=== PATIENT | male | born 1940 | race Caucasian/White ===

== ENCOUNTER 2022-11-06 08:00 | Outpatient (RCR) | payer MEDICARE, BC, SELFPAY | END 2022-11-07 14:31 | disposition home or self-care (01) | PROVIDERS: PCP Family Medicine; Visit Provider Student in an Organized Health Care Education/Training Program | DX: R26.89 Other abnormalities of gait and mobility (principal); Z51.89 Encounter for other specified aftercare | CPT/HCPCS: 97110; 97112; 97161; 97530; 97535 ==

== ENCOUNTER 2023-06-11 08:25 | Outpatient (CLI) | payer MEDICARE, BC, SELFPAY ==
--- OUTSIDE RECORDS SUMMARY | 2023-06-11 08:31 | XMS_ITS | Encounter Summary ---
Author Name Unknown Organization [facility] Address [address] [place] [address] Care Team Providers Care Organ Tuner Name Role Phone Elsewhere, Pcp Primary Care Provider Unavailabl e Encounter Details Date Type Department Care Team (Late st Contact Info) Description 12/24/2013 Historical Ophthalmology RST OPH Frandy Farley M.D. Social History Tobacco Use Types Packs/Day Years Used Date Smoking Tobacco: Never Assessed Sex and Gender Information Value Date Recorded Sex Assigned at Not on file Gender Identity Not on file Sexual Orientation Not on file documented as of this encounter Progress Notes * Frandy Farley M.D. - 12/24/2013 7:19 AM CDT Eye General CHIEF COMPLAINT Follow up on choroidal melanoma HISTORY OF PRESENT ILLNESS This is a 73 year old male here today for a follow up on choroidal melanoma. Patient states vision unchanged since last visit. Denies ocular pain, flashes of light, and diplopia. Floaters alone; lefteye; after injections; on and off. IMPRESSION / REPORT / PLAN 03/22/11 US left eye:tumor 1.4 x 14.4 x 10.8mm @ 12:30 PE, low to medium reflectivity, no extrascleral extension.Axial length 24.5mm right eye, 24.4mm left eye. LS 05/06/11 US left eye: tumor 1.4-1.5x 12 x 7.8mm @ 12:30 PE, low to medium reflectivity. No extrascleral extension. ZK 01 Nov 2011 US left eye: tumor 1.2 - 1.3mm @ 12 PE, no extrascleral extension. LS 26 Nov 2012 US left eye: tumor 1.1 - 1.3mm @ 12 PE, no extrascleral extension. LS 24 Dec 2013 US left eye: tumor 1.0 - 1.1mm @ 12 P, no extrascleral extension. LS 03/07 OCT RIGHT shows trace ERM; LEFT shows significant subretinal fluid extending into fovea (CMT =768), CESAR over lesion shows choroidal thickening with SRF; 03/07 AF RIGHT WNL; LEFT shows hyperfluorescence superior macula extending beyond arcade with hypofluorescence of lesion surrounded by stippled hyperfluorescence; 03/07 FA/ICG RIGHT WNL; LEFT shows filagree hyperfluorescence surrounding lesion from staining, and feeder vessels to lesion with late leakage 03/07 Color photos show: approximately 5mm superior to the fovea and 4mm superotemporal to the nervethere is a linear minimally elevated pigmented lesion with indistinct borders measuring 7.5mm x 12.5mm with surrounding stippled pigment and surrounding SRF extending diffusely into the macula almostto the inferior arcade 03/01/11 Outside imaging: Anterior, lateral, and posterior borders unchanged of lesion compared to 03/01/11 #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 TTT and 18mm plaque with 65Gy to 5mm inner 06/05 suspect diffuse choroidal melanoma because of the internal pigmentation (+) symptoms-distortions for 3mos w distortions, (-) thickness, (+) low internal reflectivity, (+) SRF, (-) proximity to nerve, (+) melanolipofuscin, (-) absence of drusen 03/25/11; approximately 6mm superior to the fovea and 6mm superotemporal to the nerve there is a linear mildely elevated variably pigmented chroidal mass with indistinct borders measuring 8.5mm x 13.5mm with the central aspect being pigmented and ovoid dome shaped measuring 10x6x1.5mm with overlyingdrusen, and the surrounding being flat and amelanotic with surrounding stippled melanolipofuscin and surrounding SRF extending diffusely into the macula almost to the inferior arcade 03/25/11: CT chest/abd/pelvis with 2 nonspecific right pulmonary nodules up to 3mm. No evidence of metastasis in abdomen or pelvis discussed polycarbonate lenses lina in light of his occupation 03/25/11: LFT, LDH, GGT wnl 05/05; vision has continued to get worse; photos tumor base is unchanged; discussed with patient since vision is getting worse so proceed with plaque and TTT; 18mm plaque with 65Gy to 5mm inner and TTT left eye May 26 and removal May 30 no biopsy/ 11/05; tumor thickness is less and good laser borders;dense laser around long tumor; tumor itself isnecrosing thickness has decreased ; lfts wnl; ct chest and abdomen no evidence of mets; pulmonary nodule is unchanged; has renal stones present; rtc 8mos with ct chest and abdomen, lfts, photos and US and oct 12/06; oct shows opacification of the retinal layers in the areas of the cw spots and no Cystoid macular edema; lfts wnl; ct chest unchanged nodules, ct abdomen shows lesion in the KIDNEY is maybe slightly changed; will get renal US; 12/07; oct shows interval retinal atrophy and, opacification of the retinal layers in the areas of the cw spots, no cystoid macular edema; Has been receiving Avastin at [facility] (x5), last one 6 weeks ago. 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 Farley. Pt should get CT chest/abdomen at home in six months. This was added to the letter. (blr) 11/2013 Plan: Refraction at home and if it helps continue Avastin injections LE at [facility]. 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 #6 PVD both #7 history of kidney stones #8 radiation retinopathy nonproliferative left eye CDM Reports - EYEGEN Id: [id number] Status: Fnl documented in this encounter Plan of Treatment Not on file documented as of this encounter Visit Diagnoses Not on filedocumented in this encounter Additional Health Concerns Infection Onset Date Last Indicated Resolved Time COVID19 Pending 12/02/2020 12/02/2020 12/02/2020 1 1:00 PM CDT documented as of this encounter Care Teams Organ Tuner Relationship Specialty Start Date End Date Elsewhere, Pcp PCP - General Internal Medicine 06/10/22 documented as of this encounter
--- OUTSIDE RECORDS SUMMARY | 2023-06-11 08:31 | XMS_ITS | Referral Summary ---
Author Name Unknown Organization [facility] Address [address] [place] [address] Care Team Providers Care Castables Worker Name Role Phone Elsewhere, Pcp Primary Care Provider Unavailabl e Source Comments Patient records contain information from all sites at [facility]. For routine questions regarding patient records, call [phone] during business hours, M-F 8:00 AM - 5:00 PM Central Time. Record requests for emergency care only can be directed to [phone] at any time.[facility] Allergies No known active allergies Medications Medication Sig Dispensed Refills Start Date End Date Status aspirin 81 mg chewable tablet Chew 81 mg daily. 12/26/2017 Ac tive cholecalciferol (VITAMIN D3) 25 mcg (1,000 Unit) capsule Take 1 capsule by mouth daily. 07/17/2015 Active multivitamin tablet Take 1 tablet by mouth every evening. 05/06/2011 Active nitroglycerin (NITROSTAT) 0.[address] 0.4 mg under the tongue. 05/02/2020 Active rosuvastatin (CRESTOR) 40 mg tablet Take 1 tablet by mouth at bedtime. 06/13/2020 Active vitamin E 400 unit capsule Take 1 capsule by mouth every evening. 05/06/2011 Active carvediloL (COREG) 12.5 mg tablet Take 0.5 tablets (6.25 mg total) by mouth 2 (two) times a day. 01/06/2023 Active lisinopriL (PRINIVIL,ZESTRIL) 10 mg tablet Take 0.5 tablets (5 mg total) by mouth daily. 01/06/2023 Active acetaminophen (TYLENOL) 500 mg tablet Take 2 tablets (1,000 mg total) by mouth every 6 (six) hours as needed for mild pain or score 1-3 of 10 or moderate pain or score 4-6 of 10. 01/06/2023 Active simethicone (MYLICON) 80 mg chewable tablet Chew 1 tablet (80 mg total) 4 (four) times a day. 01/06/2023 Active Active Problems Problem Noted Date Diagnosed Date Malignant Neoplasm Of Kidney Pelvis Right 2022 Overview: Oncologic history summary: 1) 03/2015: Right nephrectomy, grade 3/4 papillary RCC 2) 12/30/2022: Left lower lobe lung nodule FNA showed metastatic papillary RCC. 12/31/2022: Small bowel resection of necrotic bowel (45cm), no masses identified. Genetics: not indicated Medical history is otherwise notable for CKD, CAD, retinal vein occlusion, choroidal melanoma, and recent small bowel necrosis s/p resection. Last Assessment & Plan: We discussed the diagnosis at length as well as expected outcomes, treatment options, risks, benefits, side-effects, warning signs for immediate evaluation, and alternatives. We reviewed available imaging and laboratory results pertinent to the diagnosis and plan. Patient has a good understanding as well as capacity and agrees with treatment plan. 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 It is not present in any additional sites and has not been growing on 6-month interval CT scans, suggesting that systemic therapy is not indicated at this time. Mr. Smipson also has considerable competing morbidities that make systemic therapy even less compelling as an option. We discussed that I would not offer systemic therapy at this time. I would recommend continued [id number] imaging with his primary care physician, who is Dr. Ezequiel Sanchez at [facility]. Should there be significant growth over time, I would be happy to revisit with Mr. Simpson. It was a pleasure to meet Mr. Simpson today. He does not require additional follow- up with me in Medical Oncology at [facility] at this time. If there are additional complications or concerns in the future, I would be happy to see back in clinic. Our follow-up plans are: 1) Continue [id number] imaging for known metastatic papillary renal cell carcinoma 2) Return to clinic in future if needed Hyperlipidemia Mixed 01/01/2023 Complete Intestinal Obstruction Unspecified As T o Cause 12/31/2022 Cancer Renal Cell Carcinoma Personal History 08/2020 Nodules Pulmonary Multiple 11/30/2020 Edema Macular Cystoid Left 10/13/2019 Retinopathy Radiation Induced 10/13/2019 Nevus Choroid Right 10/13/2019 Chronic Kidney Disease (CKD), Stage 3 Unspecifie d 01/01/2018 Cardiac Disease 01/01/2018 Atherosclerotic Heart Diseas e Of [place] Coronary Artery Without Angina Pectoris 01/01/2018 Melanoma Choroid Left 04/02/2017 Resolved Problems Problem Noted Date Diagnosed Date Resolved Date Melanoma Choroid 06/27/2011 10/13/2019 Immunizations Name Administration Dates Next Due Influenza high dose QV(65 years or older) (PF) 1 03/08/2022 Social History Tobacco Use Types Packs/Day Years Used Date Smoking Tobacco: Never Smokeless Tobacco: Never Tobacco Cessation:Counseling Given: Not Answered Alcohol Use Standard Drinks/Week Comments Yes 0 (1 standard drink = 0.6 oz pur e alcohol) seldom Nutrition Answer Date Recorded Nutrition: EVOO Fat Source Unknown 04/28 Nutrition: Servings of Fruits/Vegetables per Day Not on file 04/28/2020 Dental Answer Date Recorded Dental: Regular Dentist Unknown 04/29/19 Sex and Gender Information Value Date Recorded Sex Assigned at Not on file Gender Identity Not on file Sexual Orientation Not on file Last Filed Vital Signs Vital Sign Reading Time Taken Comments Blood Pressure 105/69 01/22/2023 1:29 PM HUMAN RESOURCE STATISTICIAN Pulse 71 01/22/2023 1:29 PM HUMAN RESOURCE STATISTICIAN Temperature 36.7 ??C (98.1 ??F) 01/22/2023 1:29 PM CS T Respiratory Rate 18 01/06/2023 11:5 0 AM HUMAN RESOURCE STATISTICIAN Oxygen Saturation 100% 01/22/2023 1:29 PM HUMAN RESOURCE STATISTICIAN Inhaled Oxygen Concentration - - Weight 99.7 kg (219 lb 12.8 oz) 01/22/2023 1:29 PM HUMAN RESOURCE STATISTICIAN Height 174.3 cm (5' 8.62) 01/22/2023 1:29 PM CS T Body Mass Index 32.82 01/22/2023 1:29 PM HUMAN RESOURCE STATISTICIAN Plan of Treatment Not on file Medical Devices Implanted Type Area Liquid Fertilizer Servicer Device Identifier Shelf Expiration Date Model / Serial / Lot Vascular Stent-05/15/2019 Implanted:Qty: 1 on 05/15/2019 Vascular Stent Left: Heart Medtronic / [id number] / [id number] Description:LAD. Resolute On yx Coronary Stent Zotarolimus-Eluting MRI conditional up to 3T Maximum spatial gradient magnetic field of 3000 gauss/cm or less Maximum MR system reported, whole body averaged specific absorption rate (ANGELINE) of 2.0 W/Kg (Normal operating mode) [facility] 10/12/2019 R.T.(R)(MR) Vascular Stent-07/22/2019 Implanted:Qty: 1 on 07/22/2019 Vascular Stent Left: Heart Medtronic / [id number] / [id number] Description:LAD. Resolute On yx Coronary Stent Zotarolimus-Eluting MRI conditional up to 3T Maximum spatial gradient magnetic field of 3000 gauss/cm or less Maximum MR system reported, whole body averaged specific absorption rate (ANGELINE) of 2.0 W/Kg (Normal operating mode) [facility] 10/12/2019 R.T.(R)(MR) Procedures Procedure Name Priority Date/Time Associated Diagnosis Comments COMPREHENSIVE METABOLIC PANEL, S/P Routine 01/21/2023 12:51 PM HUMAN RESOURCE STATISTICIAN Cancer Renal Cell Carcinoma Personal History Secondary Malignant Neoplasm Lung Left (HCC) from Last 3 Months or Most Recently Relevant to Health Maintenance Results * (ABNORMAL) Comprehensive Metabolic Panel (01/21/2023 12:51 PM HUMAN RESOURCE STATISTICIAN) Pathologist [facility] Potassium, S 4.9 3.6 - 5.2 mmol/L 01/21/2023 2:27 PM HUMAN RESOURCE STATISTICIAN DTL Sodium, S 140 135 - 145 mmol/L 01/21/2023 2:27 PM HUMAN RESOURCE STATISTICIAN DTL Chloride, S 103 98 - 107 mmol/L 01/21/2023 2:27 PM HUMAN RESOURCE STATISTICIAN DTL Bicarbonate, S 26 22 - 29 mmol/L 01/21/2023 2:27 PM HUMAN RESOURCE STATISTICIAN DTL Anion Gap 11 7 - 15 01/21/2023 2:27 PM HUMAN RESOURCE STATISTICIAN DTL BUN (Blood Urea Nitrogen), S 16 8 - 24 mg/dL 01/21/2023 2:27 PM HUMAN RESOURCE STATISTICIAN DTL Creatinine 1.32 0.74 - 1.35 mg/dL 01/21/2023 2:27 PM HUMAN RESOURCE STATISTICIAN DTL Estimated GFR (eGFR) 55(L) >=60 mL/min/BS A 01/21/2023 2:27 PM HUMAN RESOURCE STATISTICIAN DTL Comment: Estimated GFR calculated using the 2020 CKD_EPI creatinine equation. Calcium, Total, S 9.5 8.8 - 10.2 mg/dL 01/21/2023 2:27 PM HUMAN RESOURCE STATISTICIAN DTL Glucose, S 110 70 - 140 mg/dL 01/21/2023 2:27 PM HUMAN RESOURCE STATISTICIAN DTL Protein, Total, S 7.3 6.3 - 7.9 g/dL 01/21/2023 2:27 PM HUMAN RESOURCE STATISTICIAN DTL Albumin, S 4.2 3.5 - 5.0 g/dL 01/21/2023 2:27 PM HUMAN RESOURCE STATISTICIAN DTL Aspartate Aminotransferase (AST), S 34 8 - 48 U/L 01/21/2023 2:27 PM HUMAN RESOURCE STATISTICIAN DTL Alkaline Phosphatase, S 96 40 - 129 U/L 01/21/2023 2:27 PM HUMAN RESOURCE STATISTICIAN DTL Alanine Aminotransferase (ALT), S 48 7 - 55 U/L 01/21/2023 2:27 PM HUMAN RESOURCE STATISTICIAN DTL Bilirubin, Total, S 0.8 0.0 - 1.2 mg/dL 01/21/2023 2:27 PM HUMAN RESOURCE STATISTICIAN DTL Blood (Blood, Venous) 01/21/2023 12:51 PM HUMAN RESOURCE STATISTICIAN 01/21/2023 1:59 PM HUMAN RESOURCE STATISTICIAN Jomar Alexander APRN, C.N.P., D.N.P. L AB BLOOD ADD-ON [facility] [address] [place] [address], [facility] [address] [place] [address] from Last 3 Months or Most Recently Relevant to Health Maintenance Advance Directives For more information, please contact: [phone] * Full Code (Latest Code Status on File) Date Activated Date Inactivated Comments 12/31/2022 4:08 AM 01/06/2023 4:44 PM Question Answer Comments Full Code: Discussed Care Teams Castables Worker Relationship Specialty Start Date End Date Elsewhere, Pcp PCP - General Internal Medicine 06/10/22
--- OUTSIDE RECORDS SUMMARY | 2023-06-11 08:31 | XMS_ITS | Encounter Summary ---
Author Name Unknown Organization [facility] Address [address] [place] [address] Care Team Providers Care Binder Roller Name Role Phone Elsewhere, Pcp Primary Care Provider Unavailabl e Encounter Details Date Type Department Care Team (Late st Contact Info) Description 01/05/2015 Historical Ophthalmology RST OPH Frandy Farley M.D. Social History Tobacco Use Types Packs/Day Years Used Date Smoking Tobacco: Never Assessed Sex and Gender Information Value Date Recorded Sex Assigned at Not on file Gender Identity Not on file Sexual Orientation Not on file documented as of this encounter Progress Notes * Frandy Farley M.D. - 01/05/2015 11:07 AM CST Eye General CHIEF COMPLAINT Follow up diffuse choroidal melanoma HISTORY OF PRESENT ILLNESS This is a 74 year old male here today for follow up diffuse choroidal melanoma. Patient reports vision is stable since last visit. Patient denies any flashes of light and floaters. Patient denies anyocular pain. Patient has been receiving injections via Dr. Jefferson Cisneros at [facility]. MJ: pt does not think the injections help improve his vision much. Per pt, Dr. Allen (his local adaptive physical education specialist) gave him a new MRx for the right eye since he had broken the lens. However, he did notget a new prescription for the left eye. IMPRESSION / REPORT / PLAN 03/22/11 left eye:tumor 1.4 x 14.4 x 10.8mm [...] @ 12 P, no extrascleral extension. LS 05 Jan 2015 US Left Eye: tumor 1.0 - 1.1mm @ 12 P, no extrascleral extension. ZK 03/07 OCT RIGHT shows trace ERM; LEFT [...] compared to 03/01/11 #1 diffuse choroidal melanoma ([id number]) left eye sp TTT and 18mm plaque [...] macular edema; Has been receiving Avastin at [facility] (x5), last one 6 weeks ago. LFTs wnl, CT chest unchanged nodules,ct abdomen shows previously visualized lesion in the KIDNEY ;repeat kidney US at home ([facility]) and ROJELIO shows improvementPAM: RE 20/25+ -0.75; LE 20/100 -2.00 so consider change in refraction and if the change does not help vision then stop the avastin, if it does, continue injection; 01/08 CT chest/abd and LFTs done at [facility] - pt does not have with him-pt states that has not had these done at home and has not fued w Dr Sanchez. OCT RIGHT: ERM, no fluid LEFT: mild ERM, no fluid; CT chest abd and pelvis done 01/23/15; shows rt renal lesion not seen on ct from 08/2013; lfts wnl; letter sent to Dr Sanhcez #2 Pseudophakia left #3 Cataract right #4 [...] it helps continue Avastin injections LE at [facility]. 12/2014 Plan: no cystoid edema. Last injection of avastin left eye 2 months ago. fu w Dr Allen in 2mos and if vitreous hemorrhage then treat otherwise follow ; see Dr Sanchez for systemic fu with CT chest, abd/pelvis and LFTs, rtc 12mos with photos; US; OCT. 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 #6 PVD both #7 history of kidney stones #8 radiation retinopathy nonproliferative left eye CDM Reports - EYEGEN Id: [id number] Status: Fnl documented in this encounter Plan of Treatment Not on file documented as of this encounter Visit Diagnoses Not on filedocumented in this encounter Additional Health Concerns Infection Onset Date Last Indicated Resolved Time COVID19 Pending 12/02/2020 12/02/2020 12/02/2020 1 1:00 PM CDT documented as of this encounter Care Teams Binder Roller Relationship Specialty Start Date End Date Elsewhere, Pcp PCP - General Internal Medicine 06/10/22 documented as of this encounter
--- OUTSIDE RECORDS SUMMARY | 2023-06-11 08:31 | XMS_ITS | Encounter Summary ---
Author Name Unknown Organization [facility] Address [address] [place] [address] Care Team Providers Care Mule Spinner Name Role Phone Elsewhere, Pcp Primary Care Provider Unavailabl e Encounter Details Date Type Department Care Team (Late st Contact Info) Description 11/26/2012 Historical Ophthalmology RST OPH Frandy Farley M.D. Social History Tobacco Use Types Packs/Day Years Used Date Smoking Tobacco: Never Assessed Sex and Gender Information Value Date Recorded Sex Assigned at Not on file Gender Identity Not on file Sexual Orientation Not on file documented as of this encounter Progress Notes * Frandy Farley M.D. - 11/26/2012 7:32 AM CDT Eye General CHIEF COMPLAINT Follow up on choroidal melanoma HISTORY OF PRESENT ILLNESS 72 year old male here for follow up on choroidal melanoma. No change in floaters;left eye>right eye;rarely;several months. Patient states vision has been stable. Patient denies flashes of light ocular pain. IMPRESSION / REPORT / PLAN 03/22/11 US [...] @ 12 PE, no extrascleral extension. LS 03/07 OCT RIGHT [...] compared to 03/01/11 #1 diffuse choroidal melanoma ([id number]) left eye sp TTT and 18mm plaque [...] maybe slightly changed; will get renal US; #2 Pseudophakia left #3 Cataract right #4 [...] This was added to the letter. (blr) DIAGNOSIS #1 diffuse choroidal melanoma ([id number]) left eye sp TTT and 18mm plaque with 65Gy to 5mm inner 06/05 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 #6 PVD both #7 history of kidney stones #8 radiation retinopathy nonproliferative left eye CDM Reports - EYEGEN Id: [id number] Status: Fnl documented in this encounter Plan of Treatment Not on file documented as of this encounter Visit Diagnoses Not on filedocumented in this encounter Additional Health Concerns Infection Onset Date Last Indicated Resolved Time COVID19 Pending 12/02/2020 12/02/2020 12/02/2020 1 1:00 PM CDT documented as of this encounter Care Teams Mule Spinner Relationship Specialty Start Date End Date Elsewhere, Pcp PCP - General Internal Medicine 06/10/22 documented as of this encounter
--- OUTSIDE RECORDS SUMMARY | 2023-06-11 08:31 | XMS_ITS | Encounter Summary ---
Author Name Unknown Organization [facility] Address [address] [place] [address] Care Team Providers Care Data Entry Analyst Name Role Phone Elsewhere, Pcp Primary Care Provider Unavailabl e Encounter Details Date Type Department Care Team (Late st Contact Info) Description 11/01/2011 Historical Ophthalmology RST OPH Frandy Farley M.D. Social History Tobacco Use Types Packs/Day Years Used Date Smoking Tobacco: Never Assessed Sex and Gender Information Value Date Recorded Sex Assigned at Not on file Gender Identity Not on file Sexual Orientation Not on file documented as of this encounter Progress Notes * Frandy Farley M.D. - 11/01/2011 1:21 PM CDT Eye General CHIEF COMPLAINT Follow up for choroidal melanoma HISTORY OF PRESENT ILLNESS Floaters;LE>RE;rarely;several months;improved since first noted. Patient states vision has been stable. Patient denies ocular pain. Denies flashes of light. 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
--- OUTSIDE RECORDS SUMMARY | 2023-06-11 08:31 | XMS_ITS | Encounter Summary ---
Author Name Unknown Organization [facility] Address [address] [place] [address] Care Team Providers Care Traffic Officer Name Role Phone Elsewhere, Pcp Primary Care Provider Unavailabl e Encounter Details Date Type Department Care Team (Late st Contact Info) Description 04/09/2017 Historical Ophthalmology RST OPH Jo Ann Figueroa M.D. Social History Tobacco Use Types Packs/Day Years Used Date Smoking Tobacco: Never Assessed Sex and Gender Information Value Date Recorded Sex Assigned at Not on file Gender Identity Not on file Sexual Orientation Not on file documented as of this encounter Progress Notes * Jo Ann Figueroa M.D. - 04/09/2017 8:27 AM CST Eye General CHIEF COMPLAINT blurred vision HISTORY OF PRESENT ILLNESS Blurred vision;left eye; x many months; occasionally; symptoms are stable. MD: Primary eye provider is Dr. Hector Allen (saw him 2 weeks ago). Kidney surgeon is Dr. Shiraz Amaro (CXR, CT of abd/pelv, and LFTS with him in Feb). Primary care provider is Dr. Ezequiel Henley. Also sees Dr. Paulino at [facility] (saw him about 3 weeks ago and gets a shot about every 6 weeks with him. (Avastin left eye 03/07/2017) Records received from Dr. Allen, Dr. Amaro, and Dr. Paulino reviewed and scanned into record. IMPRESSION / REPORT / PLAN OCULAR TESTIN03/22/11 left eye:tumor 1.4 x 14.4 x 10.8mm @ 12:30 PE, low to medium reflectivity, no extrascleral extension.Axial length 24.5mm right eye, 24.4mm left eye. LS 3/12/12 US left eye: tumor 1.4-1.5x 12 x [...] @ 12 P, no extrascleral extension. ZK 28 Mar 2016 US Left Eye: tumor 1.1 - 1.2 mm @ 12 P, no extrascleral extension. LS 02 Apr 2017 US Left Eye: tumor 1.0 mm @ 12 P, no extrascleral extension SH 02 Apr 2017 OCT: right eye, extrafoveal ERM, no IRF/SRF; left eye atrophy and scar, decreased fluidcompared with 2017. 02 Apr 2017 Color photos: left eye scar with stable margins, decreased heme, residual exudate, improved compared with 2017 SYSTEMIC TESTIN03/14/2017 Liver enzymes (outside report) within normal limits 03/14/2017 Chest xray (outside report): stable chest. 03/14/2018 CT abd/pelvis (outside report): right nephrectomy. No evidence of metastatic disease in the abdomen or pelvis. 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 LFTs wnl, CT chest unchanged nodules,ct abdomen shows previously visualized lesion in the KIDNEY ;repeat kidney US at home ([facility]) and ROJELIO shows improvementPAM: RE 20/25+ -0.75; LE 20/100 -2.00 so consider change in refraction and if the change does not help vision then stop the avastin, if it does, continue injection; 01/08 CT chest/abd and LFTs done at [facility] - pt does not have with him-pt states that has not had these done at home and has not fued w Dr Sanchez. OCT RIGHT: ERM, no fluid LEFT: mild ERM, no fluid; CT chest abd and pelvis done 01/23/15; shows rt renal lesion not seen on ct from 08/2013; lfts wnl; letter sent to Dr Sanchez 04/12 CT chest/abd and LFTs done at [facility] 12/09 wnl. OCT RIGHT: ERM, no fluid LEFT: mild ERM, exudates with thickening along suptemp arcade (increased from last). 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 CT abdomen 12/09 without mets. Since he has had two cancers discussed the risks and benefits of gene testing for bap1, he wishes to have it done BAP1 NEGATIVE SYSTEMICALLY 04/09/2017: stable exam and testing as above. Copy of [facility] report printed and handed to patient per his request. 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 #6 PVD both #7 history of kidney stones 11/06; still present by CT scan 04/09/2017 s/p right nephrectomy #8 radiation retinopathy nonproliferative left eye #9 renal cell carcinoma right kidney, now s/p right nephrectomy. 12/06; no Cystoid macular edema but will [...] LFTs, rtc 12mos with photos; US; OCT. 03/2016 Plan: increased radiation retinopathy changes with macular edema but no maximo NV on exam andno VH. Poor visual prognosisn but could help peripheral vision consider avastin q3mos. F/u with Dr. Allen in 3 months. If VH then treat otherwise follow. See Dr. Sanchez for systemic fu with CT chest, abd/pelvis and LFTs, rtc 12 months with photos; US; OCT, (CT chest and abdomen with lfts done prior to return in one year at home) genedx discussed 04/09/2017 PLAN: 1) Keep follow up with Jefferson Aguilar as scheduled. 2) Keep follow up with Dr. Allen every year or sooner as needed 3) Keep follow up with Dr. Sanchez and Dr. Amaro with repeat systemic imaging (repeat chest xray or CT of chest, as well as repeat CT of abdomen/pelvis and repeat liverfunction tests) all due 02/2018 with a copy of results to be sent here 4) Follow up here 03/2018 witheye testing: OPTOS photos both eyes; OCT Spectralis both eyes, US left eye, and exam, [facility]. Mail a copy of CDM to patient and Dr. Paulino. Discussed all of the above with patient who states that he/she understands and agrees with plan. 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 CDM Reports - EYEFarmDrop Id: [id number] Status: Fnl documented in this encounter Plan of Treatment Not on file documented as of this encounter Visit Diagnoses Not on filedocumented in this encounter Additional Health Concerns Infection Onset Date Last Indicated Resolved Time COVID19 Pending 12/02/2020 12/02/2020 12/02/2020 1 1:00 PM CDT documented as of this encounter Care Teams Traffic Officer Relationship Specialty Start Date End Date Elsewhere, Pcp PCP - General Internal Medicine 06/10/22 documented as of this encounter
--- OUTSIDE RECORDS SUMMARY | 2023-06-11 08:31 | XMS_ITS | Clinical Summary ---
Author Name Unknown Organization [facility] Address [address] [place] [address] Care Team Providers Care Senior Director Finance Name Role Phone Elsewhere, Pcp Primary Care Provider Unavailabl e Source Comments Patient records contain information from all sites at [facility]. For routine questions regarding patient records, call [phone] during business hours, M-F 8:00 AM - 5:00 PM Central Time. Record requests for emergency care only can be directed to [phone] at any time.[facility] Allergies No known active allergies Medications Medication [...] is not indicated at this time. Mr. Simpson also has considerable competing morbidities that make systemic therapy even less compelling as an option. We discussed that I would not offer systemic therapy at this time. I would recommend continued [id number] imaging with his primary care physician, who is Dr. Ezequiel Sanchez at [facility]. Should there be significant growth over time, I would be happy to revisit with Mr. Simpson. It was a pleasure to meet Mr. Simpson today. He does not require additional follow- up with me in Medical Oncology at [facility] at this time. If there are additional complications or concerns in the future, I would be happy to see back in clinic. Our follow-up plans are: 1) Continue u8idajy imaging for known metastatic papillary renal cell [...] Disease 01/01/2018 Atherosclerotic Heart Diseas e Of [place] Coronary Artery Without Angina Pectoris 01/01/2018 Melanoma Choroid Left 04/02/2017 Resolved Problems Problem Noted Date Diagnosed Date Resolved Date Melanoma Choroid 06/27/2011 10/13/2019 Immunizations Name Administration Dates Next Due Influenza high dose QV(65 years or older) (PF) 1 03/08/2022 Family History Medical History Relation Name Comments Cataracts Father Cancer Mother Cataracts Mother Relation Name Status Comments Father Mother Social History Tobacco Use Types Packs/Day Years [...] Date Recorded Dental: Regular Dentist Unknown 04/29/19 21 Sex and Gender Information Value Date Recorded Sex Assigned at Not on file Gender Identity Not on file Sexual Orientation Not on file Last Filed Vital Signs Vital Sign Reading Time Taken Comments Blood Pressure 105/69 01/22/2023 1:29 PM POULTRY FARMWORKER Pulse 71 01/22/2023 1:29 PM POULTRY FARMWORKER Temperature 36.7 ??C (98.1 ??F) 01/22/2023 1:29 PM CS T Respiratory Rate 18 01/06/2023 11:5 0 AM POULTRY FARMWORKER Oxygen Saturation 100% 01/22/2023 1:29 PM POULTRY FARMWORKER Inhaled Oxygen Concentration - - Weight 99.7 kg (219 lb 12.8 oz) 01/22/2023 1:29 PM POULTRY FARMWORKER Height 174.3 cm (5' 8.62) 01/22/2023 1:29 PM CS T Body Mass Index 32.82 01/22/2023 1:29 PM POULTRY FARMWORKER Plan of Treatment Health Maintenance Due Date Last Done Comments DTaP,Tdap,and Td Vaccines (1 - Tdap) 05/24/2009 05/23/2009 Depression Screening (Annual PHQ-2) 02/24/2023 Fall Risk Screen (Annual) 02/24/2023 Creatinine Level (Kidney Fun ction Test) 01/22/2024 01/21/2023, 01/05/2023, 01/04/2023, Additional history exists Potassium Level 01/22/2024 01/21/2023, 12/25, 01/04/2023, Additional history exists Sodium Level 01/22/2024 01/21/2023, 12/25, 01/04/2023, Additional history exists Office Visit for Blood Press ure Check / Re-check 01/23/2024 01/22/2023 Pneumococcal vaccine (65+ years) Completed 02/01/20, 10/19/2010 Zoster Vaccines Completed 11/06/2018, 06/2018, 03/03/2015 Influenza Vaccine Completed 01/06/2023, , 11/21/2020, Additional history exists COVID-19 Vaccine Completed 01/13/2023, , 09/07/2021, Additional history exists Medical Devices Implanted Type Area Insulator Helper Device Identifier Shelf Expiration Date Model / Serial / Lot Vascular Stent-05/15/2019 Implanted:Qty: 1 on 05/15/2019 Vascular Stent Left: Heart Medtronic / [id number] / [id number] Description:LAD. Resolute On yx Coronary Stent Zotarolimus-Eluting MRI conditional up to 3T Maximum spatial gradient magnetic field of 3000 gauss/cm or less Maximum MR system reported, whole body averaged specific absorption rate (ANGELINE) of 2.0 W/Kg (Normal operating mode) [facility] 10/12/2019 R.T.(R)(MR) Vascular Stent-07/22/2019 Implanted:Qty: 1 on 07/22/2019 Vascular Stent Left: Heart Medtronic / [id number] / [id number] Description:LAD. Resolute On yx Coronary Stent Zotarolimus-Eluting MRI conditional up to 3T Maximum spatial gradient magnetic field of 3000 gauss/cm or less Maximum MR system reported, whole body averaged specific absorption rate (ANGELINE) of 2.0 W/Kg (Normal operating mode) [facility] 10/12/2019 R.T.(R)(MR) Procedures Procedure Name Priority Date/Time Associated Diagnosis Comments COMPREHENSIVE METABOLIC PANEL, S/P Routine 01/21/2023 12:51 PM POULTRY FARMWORKER Cancer Renal Cell Carcinoma Personal History Secondary Malignant Neoplasm Lung Left (HCC) from Last 3 Months or Most Recently Relevant to Health Maintenance Results * (ABNORMAL) Comprehensive Metabolic Panel (01/21/2023 12:51 PM POULTRY FARMWORKER) Potassium, S 4.9 3.6 - 5.2 mmol/L 01/21/2023 2:27 PM POULTRY FARMWORKER DTL Sodium, S 140 135 - 145 mmol/L 01/21/2023 2:27 PM POULTRY FARMWORKER DTL Chloride, S 103 98 - 107 mmol/L 01/21/2023 2:27 PM POULTRY FARMWORKER DTL Bicarbonate, S 26 22 - 29 mmol/L 01/21/2023 2:27 PM POULTRY FARMWORKER DTL Anion Gap 11 7 - 15 01/21/2023 2:27 PM POULTRY FARMWORKER DTL BUN (Blood Urea Nitrogen), S 16 8 - 24 mg/dL 01/21/2023 2:27 PM POULTRY FARMWORKER DTL Creatinine 1.32 0.74 - 1.35 mg/dL 01/21/2023 2:27 PM POULTRY FARMWORKER DTL Estimated GFR (eGFR) 55(L) >=60 mL/min/BS A 01/21/2023 2:27 PM POULTRY FARMWORKER DTL Comment: Estimated GFR calculated using the 2020 CKD_EPI creatinine equation. Calcium, Total, S 9.5 8.8 - 10.2 mg/dL 01/21/2023 2:27 PM POULTRY FARMWORKER DTL Glucose, S 110 70 - 140 mg/dL 01/21/2023 2:27 PM POULTRY FARMWORKER DTL Protein, Total, S 7.3 6.3 - 7.9 g/dL 01/21/2023 2:27 PM POULTRY FARMWORKER DTL Albumin, S 4.2 3.5 - 5.0 g/dL 01/21/2023 2:27 PM POULTRY FARMWORKER DTL Aspartate Aminotransferase (AST), S 34 8 - 48 U/L 01/21/2023 2:27 PM POULTRY FARMWORKER DTL Alkaline Phosphatase, S 96 40 - 129 U/L 01/21/2023 2:27 PM POULTRY FARMWORKER DTL Alanine Aminotransferase (ALT), S 48 7 - 55 U/L 01/21/2023 2:27 PM POULTRY FARMWORKER DTL Bilirubin, Total, S 0.8 0.0 - 1.2 mg/dL 01/21/2023 2:27 PM POULTRY FARMWORKER DTL Blood (Blood, Venous) 01/21/2023 12:51 PM POULTRY FARMWORKER 01/21/2023 1:59 PM POULTRY FARMWORKER Jomar Alexander APRN, C.N.P., D.N.P. L AB BLOOD ADD-ON [facility] [address] [place] [address], [place] DTL [facility] [address] [place] [address] from Last 3 Months or Most Recently Relevant to Health Maintenance Advance Directives For more information, please contact: [phone] * Full Code (Latest Code Status on File) Date Activated Date Inactivated Comments 12/31/2022 4:08 AM 01/06/2023 4:44 PM Question Answer Comments Full Code: Discussed Care Teams Senior Director Finance Relationship Specialty Start Date End Date Elsewhere, Pcp PCP - General Internal Medicine 06/10/22
--- OUTSIDE RECORDS SUMMARY | 2023-06-11 08:31 | XMS_ITS | Encounter Summary ---
Author Name Unknown Organization [facility] Address [address] [place] [address] Care Team Providers Care Duty Engineer Name Role Phone Elsewhere, Pcp Primary Care Provider Unavailabl e Encounter Details Date Type Department Care Team (Latest Contact Info) Description 12/30/2022 Intake [facility] Social History Tobacco Use Types Packs/Day Years Used Date Smoking Tobacco: Never Smokeless Tobacco: Never Alcohol Use Standard Drinks/Week Comments Yes 0 [...] on file documented as of this encounter Plan of Treatment Not on file documented as of this encounter Visit Diagnoses Not on filedocumented in this encounter Additional Health Concerns Assessment Noted Time PHQ-9 Depression Total Score: 7 04/10/19 19 2:00 PM REINSURANCE CLERK documented as of this encounter Care Teams Duty Engineer Relationship Specialty Start Date End Date Elsewhere, Pcp PCP - General Internal Medicine 06/10/22 documented as of this encounter
--- OUTSIDE RECORDS SUMMARY | 2023-06-11 08:31 | XMS_ITS ---
Author Name Unknown Organization [facility] Address [address] [place] [address] Care Team Providers Care Family Services Specialist Name Role Phone Unavailable Unavailable Unavailable Surgery Details Not on file Complications Check Surgery Details section. Procedure Estimated Blood Loss Check Surgery Details section. Procedure Findings Check Surgery Details section. Procedure Specimens Taken Check Surgery Details section.
--- OUTSIDE RECORDS SUMMARY | 2023-06-11 08:31 | XMS_ITS | Encounter Summary ---
Author Name Unknown Organization [facility] Address [address] [place] [address] Care Team Providers Care Eye Technician Name Role Phone Elsewhere, Pcp Primary Care Provider Unavailabl e Encounter Details Date Type Department Care Team (Late st Contact Info) Description 03/28/2016 Historical Ophthalmology RST OPH Frandy Farley M.D. Social History Tobacco Use Types Packs/Day Years Used Date Smoking Tobacco: Never Assessed Sex and Gender Information Value Date Recorded Sex Assigned at Not on file Gender Identity Not on file Sexual Orientation Not on file documented as of this encounter Progress Notes * Frandy Farley M.D. - 03/28/2016 8:19 AM CST Eye General CHIEF COMPLAINT follow up diffuse choroidal melanoma ([id number]) left eye sp TTT and 18mm plaque with 65Gy to 5mm inner 06/05: decreased vision left eye HISTORY OF PRESENT ILLNESS Unreliable vision; left eye; x 2 years; constantly; symptoms are moderate; unchanged from previous visits. Floaters alone; left eye; x several years; rarely. Left eye; feels like grit; occasionally; X 2 weeks. Denies any flashes of light and ocular pain. No injections left eye since 10/2014. CT chest, abd/pelvis and LFTs done locally. IMPRESSION / REPORT / PLAN 03/22/11 left [...] @ 12 P, no extrascleral extension. LS #1 diffuse choroidal melanoma ([id number]) left eye sp TTT and 18mm plaque [...] macular edema; Has been receiving Avastin at [facility] (x5), last one 6 weeks ago. LFTs wnl, CT chest unchanged nodules,ct abdomen shows previously visualized lesion in the KIDNEY ;repeat kidney US at home ([facility]) and ROJELIO shows improvementPAM: RE 20/25+ -0.75; LE 20/100 -2.00 so consider change in refraction and if the change does not help vision then stop the avastin, if it does, continue injection; 01/08 CT chest/abd and LFTs done at [facility] - pt does not have with him-pt [...] 04/12 CT chest/abd and LFTs done at [facility] 12/09 wnl. OCT RIGHT: ERM, no fluid LEFT: mild ERM, exudates with thickening along suptemp arcade (increased from last). 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 CT abdomen 12/09 without mets. 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 #6 PVD both #7 history of kidney stones #8 radiation retinopathy nonproliferative left eye CDM Reports - EYEGEN Id: [id number] Status: Fnl documented in this encounter Plan of Treatment Not on file documented as of this encounter Visit Diagnoses Not on filedocumented in this encounter Additional Health Concerns Infection Onset Date Last Indicated Resolved Time COVID19 Pending 12/02/2020 12/02/2020 12/02/2020 1 1:00 PM CDT documented as of this encounter Care Teams Eye Technician Relationship Specialty Start Date End Date Elsewhere, Pcp PCP - General Internal Medicine 06/10/22 documented as of this encounter
--- OUTSIDE RECORDS SUMMARY | 2023-06-11 08:31 | XMS_ITS | Encounter Summary ---
Author Name Unknown Organization [facility] Address [address] [place] [address] Care Team Providers Care Sales Commissions Analyst Name Role Phone Elsewhere, Pcp Primary Care Provider Unavailabl e Encounter Details Date Type Department Care Team (Late st Contact Info) Description 06/27/2011 Historical Ophthalmology RST OPH Frandy Farley M.D. Social History Tobacco Use Types Packs/Day Years Used Date Smoking Tobacco: Never Assessed Sex and Gender Information Value Date Recorded Sex Assigned at Not on file Gender Identity Not on file Sexual Orientation Not on file documented as of this encounter Progress Notes * Frandy Farley M.D. - 06/27/2011 12:14 PM CDT Eye Postoperative MULTI-VISIT DOCUMENT This document contains multiple patient visits and is available for review in Document Viewer. CD Reports - EYEPO Id: [id number] Status: Fnl documented in this encounter Plan of Treatment Not on file documented as of this encounter Visit Diagnoses Not on filedocumented in this encounter Additional Health Concerns Infection Onset Date Last Indicated Resolved Time COVID19 Pending 12/02/2020 12/02/2020 12/02/2020 1 1:00 PM CDT documented as of this encounter Care Teams Sales Commissions Analyst Relationship Specialty Start Date End Date Elsewhere, Pcp PCP - General Internal Medicine 06/10/22 documented as of this encounter
--- OUTSIDE RECORDS SUMMARY | 2023-06-11 08:31 | XMS_ITS | Encounter Summary ---
Author Name Unknown Organization [facility] Address [address] [place] [address] Care Team Providers Care Tactical Deception Plans Officer Name Role Phone Elsewhere, Pcp Primary [...] Total Score: 7 04/10/19 19 2:00 PM CERTIFIED INDOOR ENVIRONMENTALIST documented as of this encounter Care Teams Tactical Deception Plans Officer Relationship Specialty Start Date End Date Elsewhere, Pcp PCP - General Internal Medicine 06/10/22 documented as of this encounter
--- OUTSIDE RECORDS SUMMARY | 2023-06-11 08:31 | XMS_ITS | Encounter Summary ---
Author Name Unknown Organization [facility] Address [address] [place] [address] Care Team Providers Care Seaming Inspector Name Role Phone Elsewhere, Pcp Primary Care Provider Unavailabl e Encounter Details Date Type Department Care Team (Late st Contact Info) Description 04/02/2017 Historical Ophthalmology RST OPH Jo Ann Figueroa M.D. Social History Tobacco Use Types Packs/Day Years Used Date Smoking Tobacco: Never Assessed Sex and Gender Information Value Date Recorded Sex Assigned at Not on file Gender Identity Not on file Sexual Orientation Not on file documented as of this encounter Progress Notes * Jo Ann Figueroa M.D. - 04/02/2017 10:03 AM CST Eye Subsequent Visit HISTORY OF PRESENT ILLNESS Testing Only-will see MXD 04/09/2017 No known allergies IMPRESSION / REPORT / PLAN 02 Apr 2017 Left Eye: tumor 1.0 mm @ 12 P, no extrascleral extension SH CDM Reports - EYESV Id: [id number] Status: Fnl documented in this encounter Plan of Treatment Not on file documented as of this encounter Visit Diagnoses Not on filedocumented in this encounter Additional Health Concerns Infection Onset Date Last Indicated Resolved Time COVID19 Pending 12/02/2020 12/02/2020 12/02/2020 1 1:00 PM CDT documented as of this encounter Care Teams Seaming Inspector Relationship Specialty Start Date End Date Elsewhere, Pcp PCP - General Internal Medicine 06/10/22 documented as of this encounter
--- OUTSIDE RECORDS SUMMARY | 2023-06-11 08:32 | XMS_ITS | Encounter Summary ---
Author Name Unknown Organization [facility] Address [address] [place] [address] Care Team Providers Care Dowel Pin Worker Name Role Phone Elsewhere, Pcp Primary Care Provider Unavailabl e Encounter Details Date Type Department Care Team (Late st Contact Info) Description 03/22/2011 Historical Ophthalmology RST OPH Fernando Mtz, C.O.A. Social History Tobacco Use Types Packs/Day Years Used Date Smoking Tobacco: Never Assessed Sex and Gender Information Value Date Recorded Sex Assigned at Not on file Gender Identity Not on file Sexual Orientation Not on file documented as of this encounter Progress Notes * Fernando Mtz, C.O.A. - 03/22/2011 12:26 PM CST Eye General CHIEF COMPLAINT Evaluation of choroidal melanoma, left eye. HISTORY OF PRESENT ILLNESS This is a 70 year old male here for evaluation of choroidal melanoma, left eye; blurred vision; left eye; x 6 months; constantly. IMPRESSION / REPORT / PLAN 22 Mar 2011 left eye: tumor 1.4 x 14.4 x 10.8mm @ 12:30 PE, low to medium reflectivity, no extrascleral extension. Axial length 24.5mm right eye, 24.4mm left eye. CDM Reports - EYEGEN Id: [id number] Status: Fnl documented in this encounter Plan of Treatment Not on file documented as of this encounter Visit Diagnoses Not on filedocumented in this encounter Additional Health Concerns Infection Onset Date Last Indicated Resolved Time COVID19 Pending 12/02/2020 12/02/2020 12/02/2020 1 1:00 PM CDT documented as of this encounter Care Teams Dowel Pin Worker Relationship Specialty Start Date End Date Elsewhere, Pcp PCP - General Internal Medicine 06/10/22 documented as of this encounter
--- OUTSIDE RECORDS SUMMARY | 2023-06-11 08:32 | XMS_ITS | Encounter Summary ---
Author Name Unknown Organization [facility] Address [address] [place] [address] Care Team Providers Care Group Therapy Counselor Name Role Phone Elsewhere, Pcp Primary Care Provider Unavailabl e Encounter Details Date Type Department Care Team (Late st Contact Info) Description 05/06/2011 Historical Ophthalmology RST OPH Frandy Farley M.D. Social History Tobacco Use Types Packs/Day Years Used Date Smoking Tobacco: Never Assessed Sex and Gender Information Value Date Recorded Sex Assigned at Not on file Gender Identity Not on file Sexual Orientation Not on file documented as of this encounter Progress Notes * Frandy Farley M.D. 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 Patient denies ocular pain. Floaters are stable. No flashes of light. No other vision concerns. JANET: Patient states he feels that he may have some worsening of vision especially noticable in the morning as dim vision and an elongation of a shadow above the center of his vision in the left eye since previous examination. Only noticable at daybreak and once up and around does not see it anymore. IMPRESSION / REPORT / PLAN 03/22/11 US left eye:tumor 1.4 x 14.4 x 10.8mm @ 12:30 PE, low to medium reflectivity, no extrascleral extension.Axial length 24.5mm right eye, 24.4mm left eye. LS 05/06/11 US left eye: tumor 1.4-1.5x 12 x 7.8mm @ 12:30 PE, low to medium reflectivity. No extrascleral extension. 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 The patient understands the risks. Discussed risk, goals, advanced directive, alternatives and the necessity of other members of the surgical team participating in the interventional procedure. This was discussed with the patient (or legal insurance account representative and others present during the discussion). The patient understands and wishes to proceed. 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
--- OUTSIDE RECORDS SUMMARY | 2023-06-11 08:32 | XMS_ITS | Encounter Summary ---
Author Name Unknown Organization [facility] Address [address] [place] [address] Care Team Providers Care Finance Insurance Manager Name Role Phone Elsewhere, Pcp Primary Care Provider Unavailabl e Encounter Details Date Type Department Care Team (Late st Contact Info) Description 03/25/2011 Historical Ophthalmology RST OPH Frandy Farley M.D. Social History Tobacco Use Types Packs/Day Years Used Date Smoking Tobacco: Never Assessed Sex and Gender Information Value Date Recorded Sex Assigned at Not on file Gender Identity Not on file Sexual Orientation Not on file documented as of this encounter Progress Notes * Frandy Farley M.D. - 03/25/2011 7:52 AM CST Eye General CHIEF COMPLAINT Blurred vision and distortions left eye, HISTORY OF PRESENT ILLNESS 70 year old male complains of blurred vision, distortion, and decrease in vision. Notes that all ofthis started about 6-7 months ago. He was seen by his local field tech who initially diagnosedhim with a cataract. In December 2010 he had cataract surgery done in the . Notes that this did not improved his vision much and went back for a second look. Notes that at this visit the field tech noted a growth and referred him to a second field tech in [place] about two weeks ago. He was then referred to [place]. KK: patient noted film over left eye 2-3 months ago, saw Dr. Allen (field tech), sent to Dr. Nunes who performed cataract surgery 01/23/11, and vision improved only slightly; At this point patient saw Dr. Allen again who referred patient to Dr. Paulino, who saw him on 03/01/11 and noted VA left of 20/50, and atypical nevus vs. malignancy in left eye, and referred here to Dr. Farley. Patient denies significant vision changes over this interval. IMPRESSION / REPORT / PLAN 22 Mar 2011 US left eye: tumor 1.4 x 14.4 x 10.8mm @ 12:30 PE, low to medium reflectivity, no extrascleral extension. Axial length 24.5mm right eye, 24.4mm left eye. 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 radiation. 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
--- OUTSIDE RECORDS SUMMARY | 2023-06-11 08:32 | XMS_ITS | Clinical Summary ---
Author Name Unknown Organization [facility] Address [place], [place] [address] Care Team Providers Care Bindery Operator Name Role Phone Ezequiel Sanchez MD Primary Care Provider Allergies No known active allergies Medications Medication Sig Dispensed Refills Start Date End Date Status multivitamin (MVI) tablet Take 1 tablet by mouth once daily. 0 04/23/2011 Active cholecalciferol (VITAMIN D) 1,000 unit capsule Take 1 capsule by mouth once daily. 0 07/17/2015 Active aspirin chewable 81 mg chewable tabletIndications:ST elevation myocardial infarction (STEMI), unspecified artery (HC) Take 1 tablet by mouth once daily with a meal. 0 12/26/2017 Active nitroglycerin (NITROSTAT) 0.4 mg sublingual tabletIndications:ST elevation myocardial infarction (STEMI), unspecified artery (HC) Place 1 Tablet (0.4 mg) under the tongue every 5 minutes if needed (as needed for angina). 25 Tablet 3 12/03/2022 Active rosuvastatin (CRESTOR) 40 mg tabletIndications:ST elevation myocardial infarction (STEMI), unspecified artery (HC) Take 1 Tablet (40 mg) by mouth at bedtime. 90 Tablet 3 12/03/2022 Active dapagliflozin propanediol (FARXIGA) 5 mg tabletIndications:HFr EF (heart failure with reduced ejection fraction) (HC) Take 1 Tablet (5 mg) by mouth once daily. 90 Tablet 3 12/26/2022 Active simethicone chewable (MYLANTA GAS RELIEF; GAS X) 80 mg chewable tablet Chew 80 mg by mouth four times daily after meals and at bedtime. 01/06/2023 Active lisinopriL (PRINIVIL; ZESTRIL) 10 mg tabletIndications:Art eriosclerotic heart disease,ST elevation myocardial infarction (STEMI), unspecified artery (HC) Take 0.5 Tablets (5 mg) by mouth once daily. 01/13/2023 Active carvediloL (Coreg) 12.5 mg tabletIndications:Art eriosclerotic heart disease,ST elevation myocardial infarction (STEMI), unspecified artery (HC),Hypertension Take 0.5 Tablets (6.25 mg) by mouth two times daily with meals. 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 01/01/2018 Obesity, Class II, BMI 35-39.9, with comorbidity 04/30/2016 s/p right nephrectomy for RCC 03/201504/25/2015 Choroidal malignant melanoma 01/20/2015 Umbilical hernia 07/30/2012 Nephrolithiasis 04/23/2011 Benign neoplasm of colon 04/21/2007 Other psoriasis Mixed hyperlipidemia Impaired fasting glucose Osteoarthrosis, unspecified whether generalized or localized, unspecified site Resolved Problems Problem Noted Date Diagnosed Date Resolved Date Malignant neoplasm of right kidney parenchyma 04/24/19 16 08/14/2018 Right kidney mass 04/14/2015 08/14/2018 Overview: S/p Right Hand-assisted laparoscopic nephrectomy by Dr. Amaro on 04/14/15. Ureteral calculus, left 10/10/201006/25 Renal calculus, right 10/10/20102012 Ulcerative (chronic) proctitis 04/21/2007 01/13/2023 Overview: Colonoscopy 11/2012 proctitis repeat in 5 years Colonoscopy 08/2018 lymphocytic colitis, repeat in 5 years flexible sigmoidoscopy 01/2020 ulcerative proctitis Encounters Date Type Department Care Team Description 06/09/2023 Orders Only [facility] [address] [place] [address] Ezequiel Sanchez MD Outside Order (Ordered by Dr. Shiraz Amaro) from Last 3 Months Immunizations Name Administration Dates Next Due COVID-19 Vaccine Spikevax (M oderna 50mcg/0.5mL) 12YO+ [id number] Formula PF 01/13/2023 COVID-19 vaccine (Pfizer-Bio NTech 30mcg/0.3mL) PF, MDV 04/29/2020,04/08/2020 Influenza Virus, Unspecified 12/01/2014 Influenza, High-dose Quadriv alent Inactivated 01/06/2023 Influenza, IIV3 (Age 6-35 mos) 12/26/2010,2009 Influenza, IIV3 (Age >=3 years) 12/26/2010,11/08,02/17/2008 Influenza, IIV4 12/24/2017 Influenza, Inactivated AIIV4 (Age 65+ Years) Preserv Free 11/21/2020,01/25/2020 Influenza, Inactivated IIV3 (Age 65+ Years) Preserv Free 11/06/2018,02/26/2017 Influenza,CCIIV4 PRESERV FREE 03/15/2022 Pneumococcal Poly,23-Valent (Pneumovax) 10/20/19 11 Pneumococcal conj 13-Valent (Prevnar 13) 015 Td (Age >=7 Years) 10/09/1999 Td, Preservative Free (age >= 7 Years) 0 Varicella Vaccine 03/08/2015 Zoster (Shingrix-RZV, recombinant) 11/06/2018, Zoster (Zostavax-ZVL, live) 03/03/2015 Family History Medical History Relation Name Comments Heart Disease Father Cancer Mother thyroid Anesthesia Problem No Family History Blood Disease No Family History Cancer-colon No Family History Cancer-prostate No Family History Diabetes No Family History Relation Name Status Comments Father Mother Social History Tobacco Use Types Packs/Day Years Used Date Smoking Tobacco: Never Smokeless Tobacco: Never Tobacco Cessation:Counseling Given: No Alcohol Use Standard Drinks/Week Comments Not Currently 0 (1 standard drink = 0.6 oz pur e alcohol) rarely PHQ-2 Answer Date Recorded PHQ-2 Score 0 04/26/2018 Social Connections Answer Date Recorded Frequency of Communication with Friends and Fami ly Not on file 02/24/2021 Financial Resource Strain Answer Date R ecorded Difficulty of Paying Living Expenses Not on file 02/24/2021 Difficulty of Paying Living Expenses Not on file 02/24/2021 Sex and Gender Information Value Date Recorded Sex Assigned at Not on file Gender Identity Not on file Sexual Orientation Not on file Obstetrics History Last Filed Vital Signs Vital Sign Reading Time Taken Comments Blood Pressure 108/71 01/13/2023 1:46 PM PARADI OPERATOR Pulse 72 01/13/2023 1:46 PM PARADI OPERATOR Temperature 36.4 ??C (97.6 ??F) 11/21/2020 1 1:22 AM CDT Respiratory Rate 14 12/03/2022 9:54 AM CDT Oxygen Saturation 98% 01/13/2023 1:46 PM PARADI OPERATOR Inhaled Oxygen Concentration - - Weight 102.2 kg (225 lb 6.4 oz) 01/13/2023 1:46 PM PARADI OPERATOR Height 177.8 cm (5' 10) 08/07/2022 8:41 AM CDT Body Mass Index 32.34 08/07/2022 8:41 AM CDT Plan of Treatment Health Maintenance Due Date Last Done Comments Tdap 1951 Tetanus booster 05/24/2019 05/23/2009, 10/09/1999 Depression screening for age 12+ 08/15/2019 08/14/2018, 08/14/2018, 02/13/2018, Additional history exists Medicare Wellness for age 65+ 08/15/2019 08/14/2018, 01/31/2015 BMI (ht and wt on same day) for age 18+ 08/08/2023 08/07/2022, 05/28/2021, 11/21/2020, Additional history exists Influenza for age 65+ 10/26/2023 01/06/2023 , 03/15/2022, 11/21/2020, Additional history exists Pneumococcal series for age 65+ Completed 5, 10/19/2010 Zoster (shingles) series for age 50+ Completed 11/06/2018, 08/28/2018, 03/03/2015 COVID-19 vaccine series Completed 01/14/20 23, 01/14/2022, 09/07/2021, Additional history exists Advance Directives * Full Code (Latest Code Status on File) Date Activated Date Inactivated Comments 08/19/2019 6:55 AM 08/19/2019 12:02 PM * Full Code Date Activated Date Inactivated Comments 12/23/2017 9:49 AM 12/26/2017 3:52 PM * Full Code Date Activated Date Inactivated Comments 04/14/2015 8:26 PM 04/19/2015 7:16 PM * Full Code Date Activated Date Inactivated Comments 04/14/2015 10:21 AM 04/14/2015 8:26 PM Care Teams Bindery Operator Relationship Specialty Start Date End Date Ezequiel Sanchez MD [address] [place] [address] PCP - General Family Practice 01/31/15
--- OUTSIDE RECORDS SUMMARY | 2023-06-11 08:32 | XMS_ITS | Data Portability ---
Author Name Unknown Address [address] [place] [address] Phone [phone] Organization [facility], [facility] Address [address] [place] [address] Assessment No assessment recorded. Plan of Treatment Reminders Order Date Submit Date Provider Last Modified By Organization Details Last Modified Time Details Appointments ESTABLISH ED 10 2023 01:20P Basil Amaro MD Not available Not available Not available Lab PSA, serum or plasma 2022 023 [facility], [address] [place], [address], 05/27/2022 15:33:47 PSA, total, serum or plasma - please call pt to schedule 2022 023 [facility], [address] [place], [address], 06/06/2023 15:35:18 Referral None recorded. Procedures None recorded. Surgeries None recorded. Imaging CT, chest + abdomen, w/ contrast - Follow-up in [address] scan (Chest/ab d/pelvis) with IV dye - H/O kidney cancer and lung nodulesPL EASE REACH OUT TO PT TO SCHEDULE BEFORE 06/15 023 [facility], [address] [place], [address], 06/06/2023 15:15:23 Medication Orders None recorded. Patient TargetsNo targets recorded. Patient InstructionsNo instructions recorded. Reason for Referral None Reported. Results Created Date Observation Date Name Description Value Unit Range Abnormal Flag LastModifiedBy Organization Detail LastModifiedTime 05/28/19 23 05/27/2022 PSA, serum or plasm a PSA 0.34 ng/mL 0-4.0 Not Available [facility] [address], [place], [address], 05/27/2022 15:16:24 05/28/19 23 05/24/2022 CT, chest + abdom en + pelvi s, w/ contr ast No observ ation record ed. [email or web address] [facility] [address], [place], [address], 05/27/2022 15:13:37 Result Notes None recorded. Procedures Surgical History Date Name Laterality Status Provider Name and Address Organization Details Recorded Time Blood Draw/MALTED MILK MIXER/PSA RESULTS completed Shiraz Amaro MD [address] [place] [address],[address], [address], [facility] 05/27/2022 15:16:16 kidney excision completed Shiraz Amaro MD [address] [place] [address],[address] [place] [address], [phone], [facility] 05/27/2022 15:15:38 procedure on eye completed Shiraz Amaro MD [address] [place] [address],[address], [place], [address], [facility] 05/27/2022 15:15:52 Imaging Results Imaging Date Name Status LastModified by Organiz ation Details LastModified Time 05/24/2022 CT, chest + abdomen + pelvis, w/ contrast completed [email or web address] [facility] [address], [place], [address], 05/27/2022 15:13:37 Procedure Notes None recorded. Medical Equipment None Reported. Allergies No known drug allergies Medications Name Sig Start Date Stop Date Status Note LastModified by Organization Details LastModified Time carvedilol 12.5 mg tablet active Not Available Not Available No t Available lisinopril 10 mg tablet active Not Available Not Available No t Available nitroglycerin 0.[address] TABLET UNDER THE TONGUE EVERY 5 MINUTES IF NEEDED. active Not Available Not Available No t Available rosuvastatin 40 mg tablet active Not Available Not Available No t Available Vitals Date Recorded Body height Body mass index (BMI) Body weight Provider Name and Address Organization Details Last Updated DateTime 05/27/2022 177.8 cm 35.9 kg/m2 886457.09 g Shiraz Amaro MD [address], [place], [address], [facility] 05/27/2022 15:14:31 Social History Question Answer Notes LastModified by Organizat ion Details LastModified Time Tobacco Smoking Status Never Smoker Shiraz Amaro MD [address], [place], [address], [facility] 05/27/2022 15:15:26 What Is Your Level Of Alcohol Consumption? Occasional Information not available 05/27/2022 What Is Your Level Of Caffeine Consumption? Moderate Information not available 05/27/2022 What Was The Date Of Your Most Recent Tobacco Screening? 05/27/2022 Information not available 05/27/2022 Sex: Male Functional Status None recorded. Mental Status None recorded. Family History Relationship Description Onset Age of this Age Resolved Age Notes Mother Family history of ca rdiac disorder Medical History Condition Response Diabetes N Sexually Transmitted Infection N Other N Bleeding Disorder N High Blood Pressure Y Kidney Stones N High Cholesterol Y GERD/Acid Reflux N Heart Disease N Cancer N Lung Disease N Depression N Immunizations Vaccine Type Date Status Provider Name and Address Organization Details Recorded Time influenza, trivalent, adjuvanted 02/26/2017 completed Mindy pina, [facility] 01/22/2023 17:27:00 influenza, trivalent, adjuvanted 11/06/2018 completed Mindymason pina, [facility] 01/22/2023 17:27:00 Influenza, injectable, MDCK, preservative free, quadrivalent 03/15/2022 completed Mindymason Maciel null, [facility] 01/22/2023 17:27:00 zoster recombinant 08/28/2018 completed Mindy Al lar null, [facility] 01/22/2023 17:27:00 zoster recombinant 11/06/2018 completed Mindy Al lar null, [facility] 01/22/2023 17:27:00 Influenza vaccine, quadrivalent, adjuvanted 11/21/2020 completed Mindy Allar null, [facility] 01/22/2023 17:27:00 Influenza vaccine, quadrivalent, adjuvanted 01/25/2020 completed Mindy Allar null, [facility] 01/22/2023 17:27:00 COVID-19, mRNA, LNP-S, PF, 30 mcg/0.3 mL dose 04/08/2020 completed Mindy Allar null, [facility] 01/22/2023 17:27:00 COVID-19, mRNA, LNP-S, PF, 30 mcg/0.3 mL dose 04/29/2020 completed Mindy Allar null, [facility] 01/22/2023 17:27:00 COVID-19, mRNA, LNP-S, PF, 30 mcg/0.3 mL dose 01/12/2021 completed Mindy Allar null, [facility] 01/22/2023 17:27:00 COVID-19, mRNA, LNP-S, PF, 30 mcg/0.3 mL dose, cosme-sucrose 09/07/2021 completed Mindy Allar null, [facility] 01/22/2023 17:27:00 COVID-19, mRNA, LNP-S, bivalent, PF, 50 mcg/0.5 mL or 25mcg/0.25 mL dose 01/14/2022 completed Mindy Allar null, [facility] 01/22/2023 17:27:00 pneumococcal polysaccharide PPV23 10/19/2010 completed Mindy Allar null, [facility] 01/22/2023 17:27:00 influenza, unspecified formulation 12/01/2014 completed Mindy Allar null, [facility] 01/22/2023 17:27:00 Pneumococcal conjugate PCV 13 01/31/2015 completed Mindy Allar null, [facility] 01/22/2023 17:27:00 varicella 03/08/2015 completed Mindy Allar null, [facility] 01/22/2023 17:27:00 zoster live 03/03/2015 completed Mindy Allar null, [facility] 01/22/2023 17:27:00 Influenza, seasonal, injectable 02/17/2008 completed Mindy pina, [facility] 01/22/2023 17:27:00 Influenza, seasonal, injectable, preservative free 11/08/2009 completed Mindy pina, [facility] 01/22/2023 17:27:00 Influenza, seasonal, injectable, preservative free 12/26/2010 completed Mindy pina, [facility] 01/22/2023 17:27:00 Td (adult), 5 Lf tetanus toxoid, preservative free, adsorbed 05/23/2009 completed Mindy pina, [facility] 01/22/2023 17:27:00 influenza, injectable, quadrivalent, preservative free 12/24/2017 completed Mindy pina, [facility] 01/22/2023 17:27:00 Past Encounters Encounter ID Performer Location Encounter Start Date Encounter Closed Date Diagnosis/Indication Diagnosis SNOMED-CT Code [id number] Shiraz Amaro MD [facility] [address] [place] [address] 05/27/2022 15:04:23 05/31/2022 10:11:18 History of malignant neoplasm of kidney [id number] Benign pro static hyperplasia with outflow obstruction [id number] Health Concerns Section Related Observation LastModified by Organization Detai ls LastModified Time None Recorded Concern Status LastModified by Organization Details LastModified Time None Recorded Advance Directives Directive None Recorded Payers Encounter Date Sequence Insurance Name Policy Number Policy Negron Covered Member ID Negron Member ID Guarantor Name 05/27/2022 1 [place] [employer] Demond Simpson [id number] Demond Simpson 05/27/2022 2 [place] [employer] Gladys Simpson [id number] Demond Simpson Notes Date Note Type Note Provider Name and Address Organization Details Recorded Time 05/27/2022 text/html HPI Notes: 82 yo male with H/O melanoma (eye), kidney stones, elevated PSA , and 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 CT scan 08/31/13 revealed a 2.6 cm mass in the Right mid-posterior kidney. F/U CT scan (01/23/15) showed the mass had increased in size (2.8 cm) and a 3 mm stone in Right lower pole. MRI (02/15/15) - showed it was a solid mass and enhances. - s/p Right SHAUNNA nephrectomy on 04/14/15 . 05/28/21 - He presents today for follow-up on his kidney cancer. He denies abdominal / flank pain, night sweats or weight loss. He reports no change with urination - he does have some hesitancy. He voids every 2-4 hours during the day and 0-1x per night. He reports non-healing lesion on back of Left leg (2 years). 05/27/22 - He presents for follow-up on kidney cancer. He denies abdominal / flank pain, night sweats or weight loss. He voids every 2-4 hours during the day and 0-1x per night - denies dysuria. - PSA - 0.34 PSA - 2.56 (12/26/10) - 0.37 (01/29/11) - 0.37 (03/19/12) - 0.37 (01/04/16) - 0.57 (03/14/17) - 0.29 (05/01/18) - 0.37 (04/19/19) - 0.29 (04/25/20) - 0.36 (05/16/21) - 0.34 (05/27/22) CT scan (04/26/20) - 7 mm nodule in Left lower lobe - several subcentimeter retroperitoneal lymph nodes - pancreatic cysts CT scan (11/01/20) - 8 mm nodule in Left lower lobe - no retroperitoneal lymphadenopathy - + pancreatic cysts CT scan (05/16/21) - 9 mm nodule in Left lower lobe - no retroperitoneal lymphadenopathy - + pancreatic cysts CT scan (05/24/22) - no renal masses or retroperitoneal lymphadenopathy - relatively stable small bilateral intrapulmonary nodules - + pancreatic cysts Shiraz Amaro MD [address], [place], [address], [place] [facility] 05/27/2022 18:38:00
--- NOTE | 2023-06-11 09:00 | CT_ITS ---
Patient: TALON BELTRAN Facility:?[facility] Patient ID:?[id number] Site Patient ID:?[id number] Site :?[id number] Study:?CT-Chest/Abd/Pelvis 118CC ISOVUE 370 AND WATER PREP-06/11/2023 2:21:28 PM Ordering Physician:?DR. DEL RIO Final Report: INDICATION: Follow up kidney cancer and lung nodules TECHNIQUE: Volumetric helical scanning of the chest, abdomen and pelvis was performed with 118 cc of Isovue 370 contrast material IV. Coronal and sagittal reconstructions were obtained. COMPARISON: Chest/abdomen/pelvis CT of 05/24/2022 FINDINGS: CHEST: Pre-existing pulmonary nodules are generally slightly larger than on the prior study. For example, a noncalcified 14 mm left lower lobe base nodule on image 68 of series 3 previously measured 12 mm. An 8 mm left upper lobe nodule on image 45 previously measured 7 mm. Additional smaller pre-existing nodules are slightly larger or unchanged. New noncalcified 2 mm lower lobe nodules are demonstrated bilaterally on image 52. No infiltrate, airway abnormality or pleural effusion is demonstrated. No axillary, mediastinal or hilar adenopathy is apparent. The heart is normal in size. Calcified coronary arterial plaque is again noted. ABDOMEN/PELVIS: Postop changes of right nephrectomy are again demonstrated. No recurrent mass is evident. No lymphadenopathy is noted. The left kidney is normal. The liver is normal in size, shape and attenuation. Tiny stones are noted in the gallbladder. The bile ducts are within normal limits. No free fluid is demonstrated. The spleen and adrenal glands are negative. An unchanged 2.0 Cm pancreatic tail cystic lesion is demonstrated. The bowel is negative. The prostate is unremarkable. No lytic or blastic bone lesion is identified. IMPRESSION: 1. Post right nephrectomy. No evidence of local recurrence. 2. Numerous noncalcified pulmonary nodules, generally slightly increased and several additional new tiny noncalcified nodules. Metastatic disease suspected. 3. Unchanged 2.0 cm pancreatic cystic tail lesion. 4. Cholelithiasis. Please note that all CT scans at this facility use dose modulation, iterative reconstruction, and/or weight-based dosing when appropriate to reduce radiation dose to as low as reasonably achievable. Dictated by Sid Dennison MD @ 06/12/2023 5:02:33 PM Signed by:?Sid Dennison MD @06/12/2023 5:02:33 PM (Electronic Signature)
[2023-06-11 09:02] LABS: Creatinine* 1.2 mg/dL (0.5-1.5); Estimated Glomerular Filt Rate 61 ml/min
== END 2023-06-11 08:26 | disposition home or self-care (01) ==
LOC: CT 08:28
PROVIDERS: PCP Family Medicine; Visit Provider Urology
DX: R91.8 Other nonspecific abnormal finding of lung field (principal); K86.89 Other specified diseases of pancreas; K80.20 Calculus of gallbladder without cholecystitis without obstruction; Z85.528 Personal history of other malignant neoplasm of kidney
CPT/HCPCS: 36415; 71260; 74177; 82565; Q9967

== ENCOUNTER 2023-10-10 11:30 | Outpatient (CLI) | payer MEDICARE, BC, SELFPAY ==
--- NOTE | 2023-10-10 13:10 | W.ANESCHARGE ---
Anesthesia Charges Start Date/Time Anesthesia Start Date: 10/10/23 Anesthesia Start Time: 12:40 Stop Date/Time Anesthesia Stop Date: 10/10/23 Anesthesia Stop Time: 13:08
--- NOTE | 2023-10-10 13:24 | W.ANESCHARGE ---
Anesthesia Charges Start Date/Time Anesthesia Start Date: 10/10/23 Anesthesia Start Time: 12:40 Stop Date/Time Anesthesia Stop Date: 10/10/23 Anesthesia Stop Time: 13:08 Summary Extremes of Age - Over 70 or under 1: MDA
== END 2023-10-10 11:31 | disposition home or self-care (01) ==
LOC: OP CLINIC 11:32
PROVIDERS: PCP Family Medicine; Visit Provider Internal Medicine Gastroenterology
DX: Z12.11 Encounter for screening for malignant neoplasm of colon (principal); K63.5 Polyp of colon; Z86.010 Personal history of colon polyps
CPT/HCPCS: 00811; 45385; 88305; 99100; J2704

== ENCOUNTER 2024-02-11 07:30 | Outpatient (RCR) | payer MEDICARE, BC, SELFPAY | END 2024-06-10 23:59 | disposition home or self-care (01) | PROVIDERS: PCP Family Medicine; Visit Provider Family Medicine | DX: M21.372 Foot drop, left foot (principal); M54.16 Radiculopathy, lumbar region; M51.369 Other intervertebral disc degeneration, lumbar region without mention of lumbar back pain or lower extremity pain; M25.551 Pain in right hip; Z51.89 Encounter for other specified aftercare | CPT/HCPCS: 97110; 97140; 97163; 97530 ==

== ENCOUNTER 2024-07-26 07:23 | Outpatient (CLI) | payer MEDICARE, BC, SELFPAY ==
[2024-07-26 07:54] LABS: Creatinine* 1.3 mg/dL (0.5-1.5); Estimated Glomerular Filt Rate 55 ml/min
--- NOTE | 2024-07-26 08:00 | CRLHL7_ITS ---
For Patients: As a result of the 21st Century Cures Act, medical imaging exams and procedure reports are released immediately into your electronic medical record. You may view this report before your referring provider. If you have questions, please contact your health care provider. INDICATION: Malignant neoplasm of kidney TECHNIQUE: CT chest, abdomen and pelvis acquired with 95 mL Isovue 370 IV contrast. COMPARISON: 06/11/2023, 05/24/2022, 05/16/2021 outside chest abdomen pelvis CTs from [facility] FINDINGS: CHEST: Cardiovascular structures: Heart size is normal. Thoracic aorta and main pulmonary artery are normal in caliber. Coronary artery calcifications. Mediastinum and irma: No mass or adenopathy. Lungs and pleura: Left lower lobe pulmonary nodule along the diaphragm on image 68 of series 3 measures 16 mm versus 14 mm in 2023, 12 mm in 2022, and 10 mm in 2021. Multiple additional bilateral subcentimeter pulmonary nodules have slowly increased in size as well. See for example 6 mm posterior right lower lobe on image 51 that measured 3 mm in 2021; 8 mm anterior left upper lobe image 63 measures 6 mm in 202. Chest wall and axilla: No mass or adenopathy. Bones: No suspicious bone lesions. Unremarkable for age. ABDOMEN AND PELVIS: Liver: Unremarkable. Gallbladder and bile ducts: Cholelithiasis. No biliary dilation. Pancreas: Multiple cysts largest measuring 16 mm in the tail and uncinate process, stable. Spleen: Unremarkable. Adrenal glands: Unremarkable. Kidneys: Right nephrectomy. Left kidney normal. GI tract: Unremarkable. Vascular structures: Unremarkable. Lymph nodes: Unremarkable. Miscellaneous: Unremarkable. No free air or significant free fluid. Pelvic Organs: Unremarkable. Bones: No suspicious bone lesions. Unremarkable for age. IMPRESSION: 1. Multiple bilateral pulmonary nodules demonstrates slow growth over the past few years. Largest is in the left lower lobe and measures 16 mm. 2. Stable pancreatic cysts. 3. Cholelithiasis. Please note that all CT scans at this facility use dose modulation, iterative reconstruction, and/or weight-based dosing when appropriate to reduce radiation dose to as low as reasonably achievable. Dictated by Rafa Golden MD @ 07/27/2024 10:35:06 AM (Electronically Signed)
== END 2024-07-26 07:24 | disposition home or self-care (01) ==
LOC: CT 07:24
PROVIDERS: PCP Family Medicine; Visit Provider Urology
DX: Z85.528 Personal history of other malignant neoplasm of kidney (principal); R91.8 Other nonspecific abnormal finding of lung field; K86.2 Cyst of pancreas; K80.20 Calculus of gallbladder without cholecystitis without obstruction
CPT/HCPCS: 36415; 71260; 74177; 82565; Q9967